=== PATIENT | male | born 1990 | race Caucasian/White ===

== ENCOUNTER 2018-08-17 11:43 | Emergency (ER) | payer SELFPAY ==
[2018-08-17] MEDS: ONDANSETRON 4 MG INJ IV (13:09)
[2018-08-17] MEDS: morphine 10 MG INJ IV (13:10)
[2018-08-17] MEDS: HYDROmorphONE 0.5 MG/0.5 ML SYG IV (15:00)
== END 2018-08-17 16:15 | disposition home or self-care (01) ==
LOC: FTE 11:43
DX: S06.0X0A Concussion without loss of consciousness, initial encounter (principal); S43.109A Unspecified dislocation of unspecified acromioclavicular joint, initial encounter; S42.022A Displaced fracture of shaft of left clavicle, initial encounter for closed fracture; W10.8XXA Fall (on) (from) other stairs and steps, initial encounter; Y92.89 Other specified places as the place of occurrence of the external cause
CPT/HCPCS: 29105; 70450; 71046; 72125; 73000; 73030; 73520; 96374; 96375; 99285-25